=== PATIENT | male | born 1970 | race Caucasian/White ===

== ENCOUNTER 2022-06-23 09:04 | Emergency (ER) | payer OTHER ==
[2022-06-23 09:23] VITALS: BP 145/90; PULSE 84; RESP 18; TEMP 99.2; BMI 33.4
[2022-06-23] MEDS ORDERED: ACETAMINOPHEN 500 MG TABLET (FP) PO ONE (09:30)
== END 2022-06-23 10:13 | disposition home or self-care (01) ==
LOC: FER 09:04
DX: B34.9 Viral infection, unspecified (principal)
CPT/HCPCS: 0241U-QW; 99283-25

== ENCOUNTER 2022-06-24 08:22 | Emergency (ER) | payer OTHER ==
[2022-06-24 08:31] VITALS: BP 140/90; PULSE 96; RESP 16; TEMP 100.1; BMI 33.0
== END 2022-06-24 09:11 | disposition home or self-care (01) ==
LOC: FER 08:22
DX: U07.1 COVID-19 (principal); R50.9 Fever, unspecified
CPT/HCPCS: 0241U-QW; 71045-TC-FY; 99284-25

== ENCOUNTER 2023-08-01 10:18 | Emergency (ER) | payer OTHER ==
[2023-08-01 10:38] VITALS: RESP 16; TEMP 98.7; BMI 35.5
[2023-08-01 11:12] LABS: HEMATOCRIT 47.4 % (35.4-49); HEMOGLOBIN 15.7 G/dL (11.7-16.9); MCH 28.3 pg (25.7-33.7); MCHC 33.2 g/dl (32.0-35.9); MEAN CELL VOLUME 85.2 fl (80-96); MEAN PLT VOLUME 8.8 fl (7.5-11.1); RBC 5.56 10^6/uL (4.00-5.60); RDW 14.7 % (11.9-15.9); WHITE BLOOD COUNT 8.5 10^3/uL (4.0-10.8)
[2023-08-01 11:41] LABS: ALBUMIN 4.5 g/dl (3.4-5.0); BILIRUBIN,TOTAL 0.3 mg/dl (0.2-1); CALCIUM 9.7 mg/dl (8.5-10.1); POTASSIUM 3.8 mmol/L (3.5-5.1)
[2023-08-01 14:25] VITALS: BP 147/96; PULSE 81
[2023-08-01] MEDS ORDERED: ACETAMINOPHEN 325 MG TABLET (FP) PO ONE (14:28)
[2023-08-01] MEDS ORDERED: ACETAMINOPHEN 325 MG TABLET (FP) ONE (14:29)
== END 2023-08-01 14:34 | disposition home or self-care (01) ==
LOC: FER 10:18
DX: I10 Essential (primary) hypertension (principal); R51.9 Headache, unspecified
CPT/HCPCS: 36415; 71045-TC-FY; 80053; 82550; 84484; 85027; 93005; 99285-25